=== PATIENT | male | born 1995 | race Caucasian/White ===

== ENCOUNTER 2020-01-18 11:30 | Emergency (ER) | payer SELFPAY ==
[~2020-01-18] VITALS: Ht 165.1 cm; Wt 70.3 kg
[2020-01-18 11:39] VITALS: BP 127/87
[2020-01-18] MEDS: KETOROLAC 60 MG/2 ML VIAL IM ONE (13:24)
[2020-01-18 14:31] VITALS: BP 127/87
== END 2020-01-18 14:31 | disposition home or self-care (01) ==
LOC: MED 11:30
DX: J32.2 Chronic ethmoidal sinusitis (principal); R42 Dizziness and giddiness
CPT/HCPCS: 96372; 99283; J1885